=== PATIENT | male | born 1960 | race Caucasian/White ===

== ENCOUNTER 2017-01-23 19:43 | Emergency (ER) | payer BC ==
[~2017-01-23] VITALS: Ht 182.9 cm; Wt 99.8 kg
[2017-01-23] MEDS ORDERED: ASPIRIN81 MG PO (19:57)
[2017-01-23] MEDS ORDERED: LIPITOR10 MG PO (19:57)
[2017-01-23] MEDS ORDERED: VITAMIN D31000 UNI1 PO (19:58)
== END 2017-01-23 21:17 | disposition short-term general hospital (02) ==
LOC: ER 19:43
DX: R50.9 Fever, unspecified (principal); E78.5 Hyperlipidemia, unspecified; Z79.82 Long term (current) use of aspirin; Z79.899 Other long term (current) drug therapy